=== PATIENT | female | born 1975 | race Hispanic/Latino ===

== ENCOUNTER 2025-03-02 06:28 | Day surgery (SDC) | payer OTHER, SELFPAY | END 2025-03-02 10:18 | disposition home or self-care (01) | LOC: GI 06:28 | PROVIDERS: ATTENDING PHYSICIAN Internal Medicine Gastroenterology; FAMILY PHYSICIAN Internal Medicine | DX: Z12.11 Encounter for screening for malignant neoplasm of colon (principal); D12.3 Benign neoplasm of transverse colon; K57.30 Diverticulosis of large intestine without perforation or abscess without bleeding; K64.9 Unspecified hemorrhoids | CPT/HCPCS: 45385; 88305 ==